=== PATIENT | female | born 1980 | race Two or more races ===

== ENCOUNTER 2024-04-06 19:34 | Emergency (ER) | payer SELFPAY ==
[~2024-04-06] VITALS: Ht 154.9 cm; Wt 82.3 kg
[2024-04-06 19:38] VITALS: BP 182/94; TEMP 97.9; O2SAT 98
[2024-04-06] MEDS ORDERED: PROG50IN4 IM (22:17)
== END 2024-04-06 22:38 | disposition home or self-care (01) ==
LOC: M ED 19:34
DX: Z04.89 Encounter for examination and observation for other specified reasons (principal)